=== PATIENT | female | born 1975 | race American Indian/Alaskan Native ===

== ENCOUNTER 2017-04-21 07:59 | Outpatient (CLI) | payer OTHER ==
--- NOTE | 2017-04-21 15:06 | Mammography Report ---
BILATERAL DIGITAL SCREENING MAMMOGRAM with CAD: 04/21/17 07:59:00 CLINICAL: Routine screening. COMPARISON:07/06/15 FINDINGS: The breasts are heterogeneously dense, which may obscure small masses and limit the sensitivity of mammography. No mass, architectural distortion or suspicious calcifications. IMPRESSION: No mammographic evidence of malignancy. BI-RADS CATEGORY: 1 - - Negative RECOMMENDATION: Routine mammographic screening in one year. COMMENT: Patient follow-up letters are generated by our [employer] application.
== END 2017-04-21 08:00 | disposition home or self-care (01) ==
LOC: SPVWC 07:59
PROVIDERS: ATTEND Obstetrics & Gynecology
DX: Z12.31 Encounter for screening mammogram for malignant neoplasm of breast (principal)
CPT/HCPCS: 77067; G0202

== ENCOUNTER 2018-09-07 10:47 | Day surgery (SDC) | payer OTHER ==
--- NOTE | 2018-09-04 17:29 | History and Physical Report ---
History of Present Illness Date of examination: 09/04/18 History of present illness: Patient has been reassessed/reevaluated. H&P has been reviewed. No interval changes. This is a 43 years old female who presents with menstrual disorder. The symptoms began 3 months ago. She complains of irregular menses,heavy bleeding, mid-cycle spotting and cramping, but denies lack of menses, dysmenorrhea, clotting, history of ovarian cysts, history of thyroid disease, history of fibroids, history of PCOS, history of bleeding disorder, lightheadedness and fatigue. Menstrual flow lasts > 7 days. Patient's work up has included attempted hysterosonogram failed due patient's severely retroverted uterus and discomfort. Patient desires definitive diagnosis Vital Signs: Patient Profile: 43 Years Old Female LMP: 08/27/2018 Height: 61 inches (154.94 cm) Weight: 149 pounds BMI: 28.15 Menstrual History: LMP (date): 08/27/2018 Date of Last Mammogram: 2016 Date of Last Pap Smear: 07/2018 Past History : 5 Term Births: 3 Premature Births: 0 Living Children: 3 Para: 3 Mult. Births: 0 Prev : 3 Prev. attempt? 0 Aborta: 2 Elect. Ab: 0 Spont. Ab: 2 Ectopics: 0 # 1 Delivery date: 1997 Delivery type: SAB Comments: D&C Done # 2 Delivery date: 1999 Delivery type: SAB Comments: D&C Done # 3 Delivery date: 12/06/2005 Weeks Gestation: 41 Delivery type: Anesthesia type: epidural Delivery location: [facility] Sex: Male weight: 8lbs 12oz Comments: NRFT # 4 Delivery date: 07/24/2007 Weeks Gestation: 39 Delivery type: Anesthesia type: spinal Delivery location: [facility] Infant Sex: Female weight: 9mzy3no # 5 Delivery date: 03/28/2010 Weeks Gestation: 39 Delivery type: Anesthesia type: spinal Delivery location: [facility] Infant Sex: male weight: 9.44 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 of genital herpes: yes Current Allergies (reviewed today): No known allergies Past Medical History: Negative Past Medical History Past Surgical History: ingiunal hernia x 2 2006 & 2007 & 2009 D&C:1997 & 1999 Essure 2012 Hysteroscopy:removal of IUD (05/21/2016) Family History Summary: Other family member - Has Family History of Diabetes - Entered On: 07/13/2018 Other family member - Has No Family History of Breast Cancer - Entered On: 07/13/2018 Other family member - Has No Family History of Colon Cancer - Entered On: 07/13/2018 Other family member - Has No Family History of Ovarvian Cancer - Entered On: 07/13/2018 Social History: Marital Status: Children: 3 Occupation: Speech patholoist Risk Factors: Smoked Tobacco Use: Never smoker Smokeless Tobacco Use: Never Passive smoke exposure: no Drug use: no HIV high-risk behavior: no Alcohol use: yes Type: occ Drinks per day: <1 Exercise: no Seatbelt use: 100 % Dietary Counseling: pn yes Mammogram History: Date of Last Mammogram: 09/04/2018 Results: 2017 PAP Smear History: Date of Last PAP Smear: 09/04/2018 Results: 07/2018 Review of Systems General Denies fever, chills, sweats, anorexia, fatigue, weakness, malaise, weight loss and sleep disorder. Complains of menorrhagia, abnormal vaginal bleeding and pelvic pain. Denies vaginal discharge, incontinence, dysuria, hematuria, urinary frequency, amenorrhea, genital sores, decreased libido, painful periods, painful sex, urinary urgency, hot flashes, vaginal dryness, vaginal itching and vaginal odor. CV Denies chest pains, palpitations, syncope, dyspnea on exertion, orthopnea, PND and peripheral edema. Resp Denies cough, dyspnea at rest, excessive sputum, hemoptysis, wheezing and pleurisy. GI Denies nausea, vomiting, diarrhea, constipation, change in bowel habits, abdominal pain, melena, hematochezia, jaundice, gas/bloating, indigestion/heartburn, dysphagia and odynophagia. Breast Denies left breast lump, right breast lump, nipple discharge, bloody discharge from nipple, breast pain, abnormal mammogram and breast enlargement. Psych Complains of anxiety. Denies depression, irritability and mood swings. Past History Past Medical History: other (See HPI) Past Surgical History: , Other (See HPI) Social history: , lives with family (See HPI), full code Family history: other (See HPI) Medications and Allergies Allergies Allergy/AdvReac Type Severity Reaction Status Date / Time No Known Allergies Allergy Unverified 09/01/18 13:34 Home Medications Medication Instructions Recorded Confirmed Last Taken Type Fluticasone [Flonase] 1 spray NS QDAY PRN 09/01/18 09/01/18 Unknown History Review of Systems Constitutional: other (See HPI) Exam - Physical Exam Narrative exam: HEENT: normocephalic, no lesions or deformities Skin no ulcers, xanthomas Chest: respiratory effort normal, clear to auscultation Breasts: skin/areolae normal, no masses, no nipple discharge, no erythema/warmth/tenderness, and axillae normal. CV: regular, normal S1-S2, no murmur, no rub, no gallop Abdomen: normal bowel sounds, soft, nontender, no HSM Well healed pfannenstiel scar & inguinal hernia scar Musculoskeletal: grossly normal ROM in joints, no joint tenderness or muscle weakness Neuro: no gross anomalities Extremities: normal alignment, no joint enlargement, crepitus, masses or tenderness; normal tone and strength DIRECTOR [employer] Exams Vulva/Vagina: normal appearrance, yellow discharge, lesions. No evidence of cystocele or rectocele. Cervix: normal appearance, no lesions, no discharge Unable to see IUD string Assessment and Plan - Patient Problems (1) Menometrorrhagia Current Visit: No Status: Acute Plan to address problem: Patient desires definitive diagnosis More conservative procedures have failed. Discussed risk of surgery including infection, bleeding and risk of perforating her uterus. Questions answered. Patient understands and desires to proceed (2) Retroverted uterus Current Visit: No Status: Acute
[2018-09-07] MEDS ORDERED: VERSED IV ONE (11:20)
[2018-09-07] MEDS ORDERED: LACTATED RINGERS 1,000 ML IV SCH (11:20)
[2018-09-07] MEDS ORDERED: DILAUDID ONE (13:24)
[2018-09-07] MEDS ORDERED: DIPRIVAN 10 MG/ML IV ONE (13:25)
[2018-09-07] MEDS ORDERED: XYLOCAINE MPF 2% ONE (13:25)
[2018-09-07] MEDS ORDERED: SILVER NITRATE TP ONE (13:57)
[2018-09-07] MEDS ORDERED: TORADOL ONE (14:10)
[2018-09-07] MEDS ORDERED: ZOFRAN ONE (14:10)
[2018-09-07] MEDS ORDERED: NACL 0.9% IR ONE (14:23)
--- NOTE | 2018-09-07 14:24 | Operative Report ---
Operative Report Operative Report: Date of procedure: 09/07/2018 Pre-operative diagnosis: Menometrorrhagia with severely retroverted uterus and failure of outpatient attempts at evaluation Post-operative diagnosis: Same plus severely stenotic cervical os Procedure name(s):. Attempted diagnostic hysteroscopy Surgeon: Claude Menon MD Lead Data Entry Operator: [] Anesthesia: General EBL: Minimal Complications: None Findings: Patient with severely retroverted uterus palpated on exam under anesthesia approximately 8 weeks in size. Patient with a stenotic cervical os was unable to penetrate with dilators Specimen(s): None Procedure: Patient was brought to operating room. Where general anesthesia was induced on difficulty. She was placed in the dorsal lithotomy position. Prepped and draped in usual sterile manner. My exam on anesthesia as above. Urinary bladder was emptied with a red rubber catheter. Speculum was placed in the vagina. Tenaculum was placed at 12:00. The cervix was very anterior with only a dimple cervical os. I could not place a sound through her cervical os tried several small dilators could not penetrate her cervical os. I elected to abort the procedure due to the risks of perforating the uterus. Our instruments are removed. The patient tolerated the procedure well and was awakened in the operating room. Accompanied to the recovery room in good condition
--- NOTE | 2018-09-07 14:25 | Short Stay Summary ---
Short Stay Documentation Date of service: 09/07/18 - History H&P: dictated Past Medical History: other (See HPI) Past Surgical History: , Other (See HPI) Social history: , lives with family (See HPI), full code - Allergies and Medications Current Medications: Allergies No Known Allergies Allergy (Unverified 09/01/18 13:34) Home Medications Medication Instructions Recorded Confirmed Last Taken Type Fluticasone [Flonase] 1 spray NS QDAY PRN 09/01/18 09/07/18 09/05/18 History Active Medications Lactated Ringer's (Lactated Ringers) 1,000 mls @ 100 mls/hr IV DIRECT RACHELE Last Admin: 09/07/18 11:35 Dose: 100 mls/hr Documented by: - Brief post op/procedure progress note Date of procedure: 09/07/18 (see dictated operative note) Condition: stable - Hospital course Hospital course: Patient was admitted underwent the above him procedure without any complications. Patient will be discharged with follow-up in office in 1-2 weeks for postop check. - Disposition Condition at discharge: Good Disposition: DC-01 TO HOME OR SELFCARE - Discharge Diagnoses (1) Menometrorrhagia Status: Acute (2) Retroverted uterus Status: Acute Short Stay Discharge Plan Activity: advance as tolerated Diet: regular Additional Instructions: Patient office for fever chills nausea vomiting or pain uncontrolled by pain medications. Follow up with: DR OMAR [Other] - 7 Days Prescriptions: Ibuprofen [Motrin 800 MG tab] 800 mg PO Q6H PRN #30 tablet PRN Reason: Pain Acetaminophen/Codeine [Tylenol #3] 1 tab PO Q4HR PRN #10 tablet PRN Reason: Pain Doxycycline [Vibramycin CAP] 100 mg PO Q12HR #14 capsule
[2018-09-07 19:58] VITALS: BP 106/52
== END 2018-09-07 10:48 | disposition home or self-care (01) ==
LOC: OR 10:47
PROVIDERS: ATTEND Obstetrics & Gynecology
DX: N92.0 Excessive and frequent menstruation with regular cycle (principal); N85.4 Malposition of uterus; Z98.890 Other specified postprocedural states; Z98.891 History of uterine scar from previous surgery; Z72.89 Other problems related to lifestyle; Z79.899 Other long term (current) drug therapy
CPT/HCPCS: 58555; 81025; A4217; J1170; J1885; J2250; J2405; J2704; J7120

== ENCOUNTER 2018-12-21 14:53 | Outpatient (CLI) | payer OTHER ==
--- NOTE | 2018-12-22 09:59 | Mammography Report ---
BILATERAL DIGITAL SCREENING MAMMOGRAM WITH CAD INDICATION: Routine screening mammography. TECHNIQUE: Digital bilateral 2D mammography was obtained in the craniocaudal and mediolateral obliq ue projections. This examination was interpreted with the benefit of Computer-Aided Detection analysi s. COMPARISON: 04/21/2017 FINDINGS: Breast Density: The breasts are extremely dense, which lowers the sensitivity of mammography. No mass, architectural distortion or suspicious calcifications. IMPRESSION:No mammographic evidence of malignancy. BI-RADS Category 2: Benign. No mammographic evidence of malignancy. Recommend routine screening ma mmography in one year. A "normal" or negative report should not discourage follow up or biopsy of a clinically significant f inding. A written summary of these findings will be mailed to the patient. The patient will be entered into a mammography reporting system which will generate a reminder letter for the patient's next appointmen t at the appropriate interval. The [employer] recommends yearly mammograms starting at age 40 and continuing as l kaylah as a woman is in good health. Breast MRI is recommended for women with an approximate 20-25% or greater lifetime risk of breast cancer, including women with a strong family history of breast or ova leila cancer or who have been treated for Hodgkin's disease. Signer Name: Camacho Aranda MD Signed: 12/22/2018 9:55 AM Workstation Name: [id number]
== END 2018-12-21 14:54 | disposition home or self-care (01) ==
LOC: SPVWC 14:53
PROVIDERS: ATTEND Obstetrics & Gynecology
DX: Z12.31 Encounter for screening mammogram for malignant neoplasm of breast (principal)
CPT/HCPCS: 77067

== ENCOUNTER 2021-07-26 09:22 | Outpatient (CLI) | payer OTHER ==
--- NOTE | 2021-07-26 10:29 | Mammography Report ---
DIGITAL SCREENING MAMMOGRAM WITH CAD, 07/26/2021 CLINICAL INFORMATION / INDICATION: Routine screening mammography. SCREENING MAMMO Z12.31 TECHNIQUE: Digital bilateral 2D mammography was obtained in the craniocaudal and mediolateral obliqu e projections. This examination was interpreted with the benefit of Computer-Aided Detection analysis . COMPARISON: 12/21/2018 and 04/21/2017 FINDINGS: Breast Density: The breasts are heterogeneously dense, which may obscure small masses. No dominant mass, suspicious calcifications, or architectural distortion in either breast. Largely unchanged nodular densities in the breasts, commonly fibroglandular or fibrocystic change. IMPRESSION: No mammographic evidence of malignancy. Follow up recommendation: Routine yearly BI-RADS Category 2: BENIGN. A "normal" or negative report should not discourage follow up or biopsy of a clinically significant f inding. A written summary of these findings will be mailed to the patient. The patient will be entered into a mammography reporting system which will generate a reminder letter for the patient's next appointmen t at the appropriate interval. The [employer] recommends yearly mammograms starting at age 40 and continuing as l kaylah as a woman is in good health. Breast MRI is recommended for women with an approximate 20-25% or greater lifetime risk of breast cancer, including women with a strong family history of breast or ova leila cancer or who have been treated for Hodgkin's disease. Signer Name: Linus Nicholson MD Signed: 07/26/2021 10:25 AM Workstation Name: [id number] [email or web address]
== END 2021-07-26 09:23 | disposition home or self-care (01) ==
LOC: SPVWC 09:22
PROVIDERS: ATTEND Obstetrics & Gynecology
DX: Z12.31 Encounter for screening mammogram for malignant neoplasm of breast (principal)
CPT/HCPCS: 77067